=== PATIENT | male | born 1925 | race Caucasian/White ===

== ENCOUNTER 2017-02-06 17:18 | Observation (INO) | payer MEDICARE, OTHER ==
[~2017-02-06 17:18] MED LIST: [UNRECOGNIZED DRUG - OTHER] PO SCH
--- NOTE | 2017-02-06 17:32 | EDM.PDOC ---
ED HPI GENERAL MEDICAL PROBLEM - General Chief Complaint: General Stated Complaint: fell hit head, sore right knee Time Seen by Provider: 02/06/17 17:20 Source of Information: Reports: Patient History Limitations: Reports: No Limitations - History of Present Illness INITIAL COMMENTS - FREE TEXT/NARRATIVE: Patient doing some wood working in his shop. He walked backwards to sit down and there was not a chair to sit on. He hit the back of his head, and twisted his right knee. Denies any LOC, is on coumadin. Having a difficult time standing due to pain to right knee. He has no other complaints. Onset: Today, Sudden Location: Reports: Head, Lower Extremity, Right Severity: Moderate Right Knee Pain Score (Numeric/FACES): 10 - Related Data Allergies Allergy/AdvReac Type Severity Reaction Status Date / Time NSAIDS (Non-Steroidal Allergy Mild Other Verified 02/06/17 17:47 Anti-Inflamma terazosin [Terazosin] Allergy Edema Verified 02/06/17 17:47 Home Meds: Home Meds Aspirin [Halfprin] 81 mg PO DAILY 05/19/13 [History] Cholecalciferol (Vitamin D3) [Vitamin D3] 1,000 units PO DAILY 05/19/13 [History ] Docusate Sodium [Colace] 100 mg PO BEDTIME 05/19/13 [History] Finasteride [Proscar] 5 mg PO DAILY 05/19/13 [History] Levothyroxine Sodium [Synthroid] 112 mcg PO ACBRK 05/19/13 [History] Acetaminophen [Tylenol Extra Strength] 1,000 mg PO Q4HR PRN 10/18/13 [History] Amiodarone [Cordarone] 200 mg PO DAILY 10/18/13 [History] Polyethylene Glycol 3350 [MiraLAX] 17 gm PO DAILY PRN 07/03/14 [History] Folic Acid 1 mg PO DAILY 10/06/14 [History] Tamsulosin [Flomax] 0.4 mg PO BEDTIME 10/06/14 [History] Cyanocobalamin (Vitamin B-12) [Cyanocobalamin Injection] 1,000 mcg IM Q30D 01/11 [History] Hydrocodone/Acetaminophen [[place] 10-325] 1 tab PO BEDTIME 01/14/15 [History] Phytonadione [Vitamin K] 100 mcg PO DAILY 01/14/15 [History] Ferrous Sulfate 325 mg PO DAILY 10/04/15 [History] Insulin Aspart [NovoLOG] 3 unit SUBCUT ACBREAKFAST PRN 10/04/15 [History] Insulin Aspart [NovoLOG] 7 unit SQ ,18 10/04/15 [History] Magnesium Oxide 250 mg PO BID 10/04/15 [History] Potassium Chloride 40 meq PO DAILY 10/04/15 [History] Simvastatin [Zocor] 0.5 tab PO BEDTIME 10/04/15 [History] Warfarin [Coumadin] 5 mg PO MOWEFR 10/20/15 [History] Insulin Aspart [NovoLOG] 3 unit SUBCUT WITHBREAKFAST #1 pen 10/22/15 [Rx] Insulin Detemir [Levemir] 6 unit SUBCUT DAILY #1 pen 10/22/15 [Rx] Metoprolol Succinate [Toprol XL] 50 mg PO DAILY #0 10/22/15 [Rx] Sennosides [Senna] 8.6 mg PO DAILY #30 tablet 10/22/15 [Rx] Warfarin [Coumadin] 2.5 mg PO SuTuThSa@1999 #1 tablet 10/22/15 [Rx] Past Medical History HEENT History: Reports: Hard of Hearing Cardiovascular History: Reports: Arrhythmia, Heart Failure, Heart Valve Replacement, High Cholesterol, Hypertension, Pacemaker Genitourinary History: Reports: Prostate Disorder Musculoskeletal History: Reports: Back Pain, Chronic, Osteoporosis Psychiatric History: Reports: Anxiety Endocrine/Metabolic History: Reports: Diabetes, Type II, Hypothyroidism - Past Surgical History Other Musculoskeletal Surgeries/Procedures:: bilateral hip Social & Family History - Tobacco Use Smoking Status *Q: Never Smoker Second Hand Smoke Exposure: No - Alcohol Use Days Per Week of Alcohol Use: 0 - Recreational Drug Use Recreational Drug Use: No - Living Situation & Occupation Living situation: Reports: , with Spouse ED ROS GENERAL - Review of Systems Review Of Systems: ROS reveals no pertinent complaints other than HPI. ED EXAM, GENERAL - Physical Exam Exam: See Below Exam Limited By: No Limitations General Appearance: Alert, WD/WN, No Apparent Distress Eye Exam: Bilateral Eye: EOMI, PERRL Ears: Normal TMs Nose: Normal Inspection Throat/Mouth: Normal Inspection, Normal Oropharynx Head: Normocephalic, Other (laceration to occiput region of the head) Neck: Normal Inspection, Supple, Non-Tender, Full Range of Motion Respiratory/Chest: No Respiratory Distress, Lungs Clear, Normal Breath Sounds, No Accessory Muscle Use, Chest Non-Tender Cardiovascular: Normal Peripheral Pulses, Regular Rate, Rhythm, No Edema, Other (click from mechanical valve, left subclavian pacemaker) Peripheral Pulses: 2+: Posterior Tibial (L), Posterior Tibial (R), Dorsalis Pedis (L), Dorsalis Pedis (R) GI/Abdominal: Normal Bowel Sounds, Soft, Non-Tender Back Exam: Normal Inspection Extremities: Normal Capillary Refill, Joint Swelling (right knee), Leg Pain ( right knee), Limited Range of Motion (right knee). No: Normal Inspection, Pedal Edema Neurological: Alert, Oriented, CN II-XII Intact, Normal Cognition, Abnormal Gait (due to pain) Psychiatric: Normal Affect, Normal Mood Skin Exam: Warm, Dry, Wound/Incision (skin tear to left elbow, hematoma to right elbow, hematoma and lac to occiput). No: Intact Lymphatic: No Adenopathy Course - Vital Signs Last Recorded V/S: Last Vital Signs Temp 37.2 C 02/06/17 17:18 Pulse 96 02/06/17 17:18 Resp 16 02/06/17 17:18 BP 130/90 02/06/17 17:18 Pulse Ox - Orders/Labs/Meds Orders: Active Orders 24 hr Category Date Time Status Head wo Cont [CT] Stat Exams 02/06/17 17:28 Taken Knee 3V Rt [CR] Stat Exams 02/06/17 17:28 Taken Sodium Chloride 0.9% [Saline Flush] Med 02/06/17 18:46 Ordered 10 ml FLUSH ASDIRECTED PRN Saline Lock Insert [OM.PC] Routine Oth 02/06/17 18:46 Ordered Medication Orders Sodium Chloride (Saline Flush) 10 ml FLUSH ASDIRECTED PRN PRN Reason: Keep Vein Open Labs: Laboratory Tests 02/06/17 Range/Units 18:06 PT 18.6 H D (9.8-11.8) SEC INR 1.8 L (2.0-3.5) Meds: Medications Generic Name Dose Route Start Last Admin Trade Name Freq PRN Reason Stop Dose Admin Sodium Chloride 10 ml 02/06/17 18:46 Saline Flush FLUSH ASDIRECTED PRN Keep Vein Open Discontinued Medications Generic Name Dose Route Start Last Admin Trade Name Freq PRN Reason Stop Dose Admin Morphine Sulfate 2 mg 02/06/17 18:46 Morphine IVPUSH 02/06/17 18:47 ONETIME ONE - Radiology Interpretation Free Text/Narrative:: Head CT reviewed. No intracranial acute process. No hematoma on exam. X-ray of right knee shows acute non displaced fractures of the lateral tibial plateau and the proximal fibula Phone call made to [facility] automation engineering manager Dr. Riley to review plan of care. Departure - Departure Time of Disposition: 19:25 Disposition: Refer to Observation Condition: Good Clinical Impression: Tibial plateau fracture, right, Fracture of proximal end of right fibula - Discharge Information Forms: ED Department Discharge ED Communication - Discussed Case With (1) Discussed Case With (1): Other (Discussed case with Dr. Riley; automation engineering manager orthopedic for [facility] in [place]. Plan of care developed. No surgery at this time. Knee immobilizer and non weight bear. Follow up with x-ray in 1 week in [place].) - My Orders Last 24 Hours: My Active Orders 02/06/17 17:28 Head wo Cont [CT] Stat Knee 3V Rt [CR] Stat 02/06/17 18:46 Sodium Chloride 0.9% [Saline Flush] 10 ml FLUSH ASDIRECTED PRN Saline Lock Insert [OM.PC] Routine - Assessment/Plan Last 24 Hours: My Active Orders 02/06/17 17:28 Head wo Cont [CT] Stat Knee 3V Rt [CR] Stat 02/06/17 18:46 Sodium Chloride 0.9% [Saline Flush] 10 ml FLUSH ASDIRECTED PRN Saline Lock Insert [OM.PC] Routine
[2017-02-06] MEDS ORDERED: Morphine 2 MG/ML Syringe IVPUSH ONE (18:46)
[2017-02-06] MEDS ORDERED: Acetaminophen 325 MG Tab PO PRN (20:17)
[2017-02-06] MEDS ORDERED: Polyethylene Glycol 3350 Powder 17 GM Packet PO PRN ×2 (20:17→21:45)
[2017-02-06] MEDS ORDERED: Ondansetron 4 MG/2 ML SDV IV PRN (20:17)
[2017-02-06] MEDS ORDERED: Warfarin 2 MG Tab PO ONE (21:00)
[2017-02-06] MEDS ORDERED: Warfarin 2.5 MG Tab PO SCH (21:45)
[2017-02-06] MEDS: Morphine 2 MG/ML Syringe IVPUSH PRN (21:59)
[2017-02-06] MEDS: Sodium Chloride 0.9% 10 ML Syringe FLUSH PRN (22:06)
[2017-02-06] MEDS: Acetaminophen/HYDROcodone 325-10 MG Tab PO PRN (23:49)
[2017-02-07] MEDS: Morphine 2 MG/ML Syringe IVPUSH PRN ×3 (01:38→19:37)
[2017-02-07] MEDS: Acetaminophen/HYDROcodone 325-10 MG Tab PO PRN (06:05)
[2017-02-07] MEDS: Levothyroxine 125 MCG Tab PO SCH (06:05)
[2017-02-07] MEDS: Furosemide 20 MG Tab PO SCH ×2 (06:05→13:41)
[2017-02-07] MEDS ORDERED: Warfarin 5 MG Tab PO SCH ×2 (08:00→20:00)
[2017-02-07] MEDS: Aspirin 81 MG Tab.EC PO SCH (08:59)
[2017-02-07] MEDS: Potassium Chloride 10 MEQ Tab.ER PO SCH (08:59)
[2017-02-07] MEDS: Sennosides 8.6 MG Tab PO SCH (08:59)
[2017-02-07] MEDS: Cholecalciferol (Vitamin D3) 1,000 Unit Tab PO SCH (09:00)
[2017-02-07] MEDS: Allopurinol 100 MG Tab PO SCH (09:00)
[2017-02-07] MEDS: Phytonadione 100 MCG Tab PO SCH (09:01)
[2017-02-07] MEDS: Finasteride 5 MG Tab PO SCH (09:01)
[2017-02-07] MEDS: Folic Acid 1 MG Tab PO SCH (09:02)
[2017-02-07] MEDS: Metoprolol Succinate 25 MG Tab.ER PO SCH (09:02)
[2017-02-07] MEDS: Insulin Aspart 100 Units/ML 3 ML Pen SUBCUT SCH (09:03)
--- NOTE | 2017-02-07 11:34 | PCM.PN ---
- General Info Date of Service: 02/07/17 Admission Dx/Problem (Free Text): tibial plateau fracture, proximal fibula fracture right leg Functional Status: Reports: Pain Controlled, Tolerating Diet, Other (await PT evaluation to indicate safest method of ambulation) - Review of Systems General: Reports: No Symptoms HEENT: Reports: No Symptoms Pulmonary: Reports: No Symptoms Cardiovascular: Reports: No Symptoms Gastrointestinal: Reports: No Symptoms Genitourinary: Reports: No Symptoms Musculoskeletal: Reports: Leg Pain (right knee) Skin: Reports: Other (skin tear left elbow) Neurological: Reports: No Symptoms Psychiatric: Reports: No Symptoms - Patient Data Vitals - Most Recent: Last Vital Signs Temp 36.8 C 02/07/17 10:00 Pulse 73 02/07/17 10:00 Resp 20 02/07/17 10:00 BP 122/75 02/07/17 10:00 Pulse Ox 95 02/07/17 10:00 Weight - Most Recent: 82.554 kg I&O - Last 24 Hours: Intake & Output 02/06/17 02/07/17 02/07/17 22:59 06:59 14:59 Intake Total 600 420 240 Output Total 600 125 Balance 600 -180 115 Lab Results Last 24 Hours: Laboratory Results - last 24 hr 02/06/17 02/07/17 Range/Units 20:09 06:00 POC Glucose 111 H 188 H (74-106) mg/dL Med Orders - Current: Current Medications Acetaminophen (Tylenol) 650 mg PO Q4H PRN PRN Reason: Pain (Mild 1-3)/fever Hydrocodone Bitart/Acetaminophen ([place] 325-10 Mg) 1 - 2 tab PO Q6H PRN PRN Reason: PAIN Last Admin: 02/07/17 06:05 Dose: 1 tab Allopurinol (Zyloprim) 100 mg PO DAILY [facility] Last Admin: 02/07/17 09:00 Dose: 100 mg Aspirin (Halfprin) 81 mg PO DAILY [facility] Last Admin: 02/07/17 08:59 Dose: 81 mg Calcitriol (Rocaltrol) 0.25 mcg PO ASDIRECTED [facility] Cholecalciferol (Vitamin D3) 1,000 units PO DAILY [facility] Last Admin: 02/07/17 09:00 Dose: 1,000 units Cyanocobalamin (Vitamin B12) 1,000 mcg IM Q30D [facility] Docusate Sodium (Colace) 100 mg PO BEDTIME [facility] Ferrous Sulfate (Ferrous Sulfate) 325 mg PO ASDIRECTED [facility] Finasteride (Proscar) 5 mg PO DAILY [facility] Last Admin: 02/07/17 09:01 Dose: 5 mg Folic Acid (Folic Acid) 1 mg PO DAILY [facility] Last Admin: 02/07/17 09:02 Dose: 1 mg Furosemide (Lasix) 20 mg PO BID@0600,1400 [facility] Last Admin: 02/07/17 06:05 Dose: 20 mg Insulin Aspart (Novolog) 3 unit SUBCUT WITHBREAKFAST [facility] Last Admin: 02/07/17 09:03 Dose: 3 unit Insulin Aspart (Novolog) 5 unit SUBCUT WITHDINNER [facility] Insulin Aspart (Novolog) 7 unit SUBCUT WITHLUNCH [facility] Levothyroxine Sodium (Levothyroxine) 125 mcg PO ACBRK [facility] Last Admin: 02/07/17 06:05 Dose: 125 mcg Metoprolol Succinate (Toprol Xl) 25 mg PO DAILY [facility] Last Admin: 02/07/17 09:02 Dose: 25 mg Morphine Sulfate (Morphine) 2 mg IVPUSH Q2H PRN PRN Reason: Pain (severe 7-10) Last Admin: 02/07/17 01:38 Dose: 2 mg Warfarin Dosing Per (Pharmacy) 0 each PO DAILY [facility] Ondansetron HCl (Zofran) 4 mg IV Q6H PRN PRN Reason: Nausea/Vomiting Phytonadione (Vitamin K) 100 mcg PO DAILY [facility] Last Admin: 02/07/17 09:01 Dose: 100 mcg Polyethylene Glycol (Miralax) 17 gm PO DAILY PRN PRN Reason: Constipation Potassium Chloride (Klor-Con 10) 10 meq PO WITHBREAKFAST [facility] Last Admin: 02/07/17 08:59 Dose: 10 meq Senna (Senna) 8.6 mg PO DAILY [facility] Last Admin: 02/07/17 08:59 Dose: 8.6 mg Senna/Docusate Sodium (Senna Plus) 1 tab PO BID PRN PRN Reason: Constipation Simvastatin (Zocor) 20 mg PO BEDTIME [facility] Sodium Chloride (Saline Flush) 10 ml FLUSH ASDIRECTED PRN PRN Reason: Keep Vein Open Last Admin: 02/06/17 22:06 Dose: 10 ml Tamsulosin HCl (Flomax) 0.4 mg PO BEDTIME [facility] Warfarin Sodium (Coumadin) 5 mg PO BEDTIME [facility] Stop: 02/07/17 20:01 Discontinued Medications Morphine Sulfate (Morphine) 2 mg IVPUSH ONETIME ONE Stop: 02/06/17 18:47 Last Admin: 02/06/17 19:02 Dose: 2 mg Polyethylene Glycol (Miralax) 17 gm PO DAILY PRN PRN Reason: Constipation Warfarin Sodium (Coumadin) 4 mg PO ONETIME ONE Stop: 02/06/17 21:01 Last Admin: 02/06/17 21:13 Dose: 4 mg Warfarin Sodium (Coumadin) 2.5 mg PO ASDIRECTED [facility] Warfarin Sodium (Coumadin) 5 mg PO DAILY [facility] - Exam General: Alert, Oriented, Cooperative, No Acute Distress HEENT: Pupils Equal, Pupils Reactive, EOMI Neck: Supple Lungs: Clear to Auscultation, Normal Respiratory Effort Cardiovascular: Regular Rate, Other (mechanical valve click) GI/Abdominal Exam: Normal Bowel Sounds, Soft, Non-Tender Back Exam: Normal Inspection Extremities: Normal Inspection, No Pedal Edema, Normal Capillary Refill, Joint Swelling, Limited Range of Motion (right knee) Skin: Warm, Dry, Intact Wound/Incisions: Healing Well (posterior occiput abrasion no longer bleeding) Neurological: No New Focal Deficit Psy/Mental Status: Alert, Normal Affect, Normal Mood - Problem List & Annotations (1) Fracture of proximal end of right fibula SNOMED Code(s): 48488824 Code(s): S82.831A - OTH FRACTURE OF UPPER AND LOWER END OF RIGHT FIBULA, INIT Status: Acute Priority: Low Current Visit: Yes Qualifiers: Encounter type: subsequent encounter Fracture type: closed Fracture morphology: unspecified fracture morphology Fracture healing: with routine healing Qualified Code(s): S82.831D - Other fracture of upper and lower end of right fibula, subsequent encounter for closed fracture with routine healing (2) Tibial plateau fracture, right SNOMED Code(s): 282073385 Code(s): S82.141A - DISPLACED BICONDYLAR FRACTURE OF RIGHT TIBIA, INIT Status: Acute Priority: Low Current Visit: Yes Qualifiers: Encounter type: subsequent encounter Fracture type: closed Fracture healing: with routine healing Qualified Code(s): S82.141D - Displaced bicondylar fracture of right tibia, subsequent encounter for closed fracture with routine healing - Problem List Review Problem List Initiated/Reviewed/Updated: Yes - My Orders Last 24 Hours: My Active Orders 02/06/17 20:17 Patient Status [ADT] Routine Oxygen Therapy [RC] PRN Up With Assistance [RC] ASDIRECTED Up to Chair [RC] ASDIRECTED VTE/DVT Education [RC] PER UNIT ROUTINE Vital Signs [RC] 06,10,14,18,22,02 OT Evaluation and Treatment [CONS] Routine PT Evaluation and Treatment [CONS] Routine Acetaminophen [Tylenol] 650 mg PO Q4H PRN Docusate Sodium/Sennosides [Senna Plus] 1 tab PO BID PRN Morphine 2 mg IVPUSH Q2H PRN Ondansetron [Zofran] 4 mg IV Q6H PRN Resuscitation Status Routine 02/06/17 21:45 Acetaminophen/HYDROcodone [[place] 325-10 MG] 1 - 2 tab PO Q6H PRN Calcitriol [Rocaltrol] 0.25 mcg PO ASDIRECTED Cyanocobalamin (Vitamin B12) [Vitamin B12] 1,000 mcg IM Q30D Ferrous Sulfate 325 mg PO ASDIRECTED Polyethylene Glycol 3350 [MiraLAX] 17 gm PO DAILY PRN 02/06/17 22:33 Blood Glucose Check, Bedside [RC] QIDACANDBED 02/06/17 Dinner Regular Diet [DIET] 02/07/17 06:00 Furosemide [Lasix] 20 mg PO BID@0600,1400 02/07/17 07:00 Levothyroxine 125 mcg PO ACBRK 02/07/17 08:00 Allopurinol [Zyloprim] 100 mg PO DAILY Aspirin [Halfprin] 81 mg PO DAILY Cholecalciferol (Vitamin D3) [Vitamin D3] 1,000 units PO DAILY Finasteride [Proscar] 5 mg PO DAILY Folic Acid 1 mg PO DAILY Insulin Aspart [NovoLOG] 3 unit SUBCUT WITHBREAKFAST Metoprolol Succinate [Toprol XL] 25 mg PO DAILY Phytonadione [Vitamin K] 100 mcg PO DAILY Potassium Chloride [Klor-Con 10] 10 meq PO WITHBREAKFAST Sennosides [Senna] 8.6 mg PO DAILY 02/07/17 12:00 Insulin Aspart [NovoLOG] 7 unit SUBCUT WITHLUNCH 02/07/17 18:00 Insulin Aspart [NovoLOG] 5 unit SUBCUT WITHDINNER 02/07/17 20:00 Docusate Sodium [Colace] 100 mg PO BEDTIME Simvastatin [Zocor] 20 mg PO BEDTIME Tamsulosin [Flomax] 0.4 mg PO BEDTIME Warfarin [Coumadin] 5 mg PO BEDTIME 02/07/17 Breakfast ADA Diabetic [[place] [employer] Diet] [DIET] - Assessment Assessment:: closed, non displaced fractures of the right tibial plateau and proximal fibula - Plan Plan:: Patient to be non weight bearing on right leg and have in knee immobilizer. He needs PT/OT evaluation as he suffers from pain to his right shoulder. This makes the use of a walker very difficult for him if not impossible. His is unable to assist. Will consult social work to determine if he needs to be changed to swing bed, or find him a location at a long-term facility until he is able to come off non weight bear restrictions. Pain control. Patient already on coumadin for mechanical valve, no additional DVT prophylaxis needed.
[2017-02-07] MEDS ORDERED: Insulin Aspart 100 Units/ML 3 ML Pen SUBCUT SCH ×2 (12:00→18:00)
[2017-02-07] MEDS: Sodium Chloride 0.9% 10 ML Syringe FLUSH PRN ×2 (12:33→19:42)
[2017-02-07] MEDS ORDERED: Tamsulosin 0.4 MG Cap.ER PO SCH (20:00)
[2017-02-07] MEDS ORDERED: Simvastatin 20 MG Tab PO SCH (20:00)
[2017-02-07] MEDS ORDERED: Docusate Sodium 100 MG Cap PO SCH (20:00)
[2017-02-08] MEDS: Sodium Chloride 0.9% 10 ML Syringe FLUSH PRN ×2 (03:13→07:47)
[2017-02-08] MEDS: Morphine 2 MG/ML Syringe IVPUSH PRN (03:13)
[2017-02-08] MEDS: Levothyroxine 125 MCG Tab PO SCH (06:09)
[2017-02-08] MEDS: Furosemide 20 MG Tab PO SCH (06:10)
[2017-02-08] MEDS: Aspirin 81 MG Tab.EC PO SCH (07:40)
[2017-02-08] MEDS: Allopurinol 100 MG Tab PO SCH (07:40)
[2017-02-08] MEDS: Sennosides 8.6 MG Tab PO SCH (07:40)
[2017-02-08] MEDS: Cholecalciferol (Vitamin D3) 1,000 Unit Tab PO SCH (07:41)
[2017-02-08] MEDS: Metoprolol Succinate 25 MG Tab.ER PO SCH (07:41)
[2017-02-08] MEDS: Finasteride 5 MG Tab PO SCH (07:42)
[2017-02-08] MEDS: Potassium Chloride 10 MEQ Tab.ER PO SCH (07:42)
[2017-02-08] MEDS: Phytonadione 100 MCG Tab PO SCH (07:42)
[2017-02-08] MEDS: Insulin Aspart 100 Units/ML 3 ML Pen SUBCUT SCH (07:42)
[2017-02-08] MEDS: Folic Acid 1 MG Tab PO SCH (07:42)
[2017-02-08] MEDS: Acetaminophen/HYDROcodone 325-10 MG Tab PO PRN (07:44)
[2017-02-08] MEDS ORDERED: Calcitriol 0.25 MCG Cap PO SCH (08:00)
[2017-02-08] MEDS ORDERED: Ferrous Sulfate 325 MG Tab PO SCH (08:00)
--- NOTE | 2017-02-08 10:05 | PCM.DCSUM1 ---
Discharge Summary - Hospital Course HPI Initial Comments: Patient had presented to the emergency room at [facility] on February 06, 2017 after he sustained a head injury and a right knee injury. Apparently the patient was working in his carotids at the time of the incident. The patient states that he was attempting to sit into a chair, and realized there was no chair available and he fell hitting his head and right knee on the ground. The patient denied any LOC at the time of the incident. The patient had denied any previous head trauma. No previous right knee problems. The patient never had any numbness tingling or paresthesia to any extremity. The admitting provider had talked to orthopedics out [facility] in [place], who recommended that the patient was a non-surgical candidate. The patient was therefore admitted to observation at [facility] for further evaluation, physical and occupational therapy, and case management. - Discharge Data Discharge Date: 02/08/17 Discharge Disposition: DC/Tfer to [facility] Condition: Fair - Discharge Diagnosis/Problem(s) (1) Tibial plateau fracture, right SNOMED Code(s): 285705388 ICD Code: S82.141A - DISPLACED BICONDYLAR FRACTURE OF RIGHT TIBIA, INIT Status: Acute Priority: Low Current Visit: Yes Onset Date: ~02/06/17 Qualifiers: Encounter type: subsequent encounter Fracture type: closed Fracture healing: with routine healing Qualified Code(s): S82.141D - Displaced bicondylar fracture of right tibia, subsequent encounter for closed fracture with routine healing (2) Fracture of proximal end of right fibula SNOMED Code(s): 37367516 ICD Code: S82.831A - OTH FRACTURE OF UPPER AND LOWER END OF RIGHT FIBULA, INIT Status: Acute Priority: Low Current Visit: Yes Onset Date: ~ Qualifiers: Encounter type: subsequent encounter Fracture type: closed Fracture morphology: unspecified fracture morphology Fracture healing: with routine healing Qualified Code(s): S82.831D - Other fracture of upper and lower end of right fibula, subsequent encounter for closed fracture with routine healing - Patient Summary/Data Operative Procedure(s) Performed: None Consults: Consultations 02/06/17 20:17 OT Evaluation and Treatment [CONS] Routine PT Evaluation and Treatment [CONS] Routine 02/07/17 11:35 Consult to [facility] [CONS] Routine Labs Pending at D/C: None Hospital Course: Overall the patient did well during his short observation hospital stay. Physical therapy and recommended long-term rehabilitation for the patient. The patient remained afebrile and hemodynamically stable. The patient did not have any problems with urination or bowel movements. Patient's blood work remained stable. The patient wore a knee immobilizer continuously. - Patient Instructions Diet: Diabetic Diet Activity: Non Weight Bearing (Right Leg) Driving: Do Not Drive Showering/Bathing: May Shower Notify Provider of: Fever, Increased Pain, Swelling and Redness - Discharge Plan Home Medications: Home Meds Aspirin [Halfprin] 81 mg PO DAILY 05/19/13 [History] Cholecalciferol (Vitamin D3) [Vitamin D3] 1,000 units PO DAILY 05/19/13 [History ] Docusate Sodium [Colace] 100 mg PO BEDTIME 05/19/13 [History] Finasteride [Proscar] 5 mg PO DAILY 05/19/13 [History] Levothyroxine Sodium [Synthroid] 125 mcg PO ACBRK 05/19/13 [History] Acetaminophen [Tylenol Extra Strength] 1,000 mg PO Q4HR PRN 10/18/13 [History] Polyethylene Glycol 3350 [MiraLAX] 17 gm PO DAILY PRN 07/03/14 [History] Folic Acid 1 mg PO DAILY 10/06/14 [History] Tamsulosin [Flomax] 0.4 mg PO BEDTIME 10/06/14 [History] Cyanocobalamin (Vitamin B-12) [Cyanocobalamin Injection] 1,000 mcg IM Q30D 01/11 [History] Phytonadione [Vitamin K] 100 mcg PO DAILY 01/14/15 [History] Ferrous Sulfate 325 mg PO ASDIRECTED 10/04/15 [History] Insulin Aspart [NovoLOG] 5 unit SQ WITHDINNER 10/04/15 [History] Insulin Aspart [NovoLOG] 7 unit SQ WITHLUNCH 10/04/15 [History] Potassium Chloride 10 meq PO DAILY 10/04/15 [History] Simvastatin [Zocor] 0.5 tab PO BEDTIME 10/04/15 [History] Warfarin [Coumadin] 5 mg PO DAILY 10/20/15 [History] Insulin Aspart [NovoLOG] 3 unit SUBCUT WITHBREAKFAST #1 pen 10/22/15 [Rx] Sennosides [Senna] 8.6 mg PO DAILY #30 tablet 10/22/15 [Rx] Allopurinol [Zyloprim] 100 mg PO DAILY 02/06/17 [History] Calcitriol [Rocaltrol] 0.25 mcg PO ASDIRECTED 02/06/17 [History] Furosemide [Lasix] 20 mg PO BID 02/06/17 [History] Metoprolol Succinate [Toprol XL] 25 mg PO DAILY 02/06/17 [History] Warfarin [Coumadin] 2.5 mg PO ASDIRECTED 02/06/17 [History] Forms: Interfacility Transfer EMTALA Referrals: Ceci Boyle MD [Physician] - - Discharge Summary/Plan Comment DC Time >30 min.: Yes Discharge Summary/Plan Comment: 89-year-old male patient with a past medical history of heart failure, hypertension, diabetes type 2, hypothyroidism, was admitted to the observation unit at [facility] for a right tibial plateau fracture and a right fibular fracture. The patient will be discharged today to the [facility] for further rehabilitation with physical and occupational therapy. The patient will be transferred via local taxi. Please see admitting orders for [facility] for further information. The patient was discharged from [facility] in hemodynamic stable condition. All appropriate paperwork was filled out in their entirety. - General Info Date of Service: 02/08/17 Admission Dx/Problem (Free Text: tibial plateau fracture, proximal fibula fracture right leg Functional Status: Reports: Pain Controlled, Tolerating Diet - Review of Systems General: Denies: Fever, Chills Pulmonary: Denies: Shortness of Breath, Sputum Cardiovascular: Denies: Chest Pain, Palpitations Gastrointestinal: Denies: Abdominal Pain, Nausea, Vomiting Musculoskeletal: Reports: Leg Pain, Joint Pain Skin: Reports: Other Neurological: Reports: No Symptoms. Denies: Numbness, Paresthesia, Tingling - Patient Data Vitals - Most Recent: Last Vital Signs Temp 37.1 C 02/08/17 05:09 Pulse 84 02/08/17 07:41 Resp 20 02/08/17 05:09 BP 140/80 02/08/17 07:41 Pulse Ox 99 02/08/17 05:09 Weight - Most Recent: 82.554 kg I&O - Last 24 hours: Intake & Output 02/07/17 02/08/17 02/08/17 22:59 06:59 14:59 Intake Total 400 640 360 Output Total 750 900 Balance -350 -260 360 Lab Results - Last 24 hrs: Laboratory Results - last 24 hr 02/07/17 02/07/17 02/07/17 Range/Units 11:10 16:33 19:36 POC Glucose 201 H 182 H 207 H (74-106) mg/dL 02/08/17 Range/Units 06:09 POC Glucose 153 H (74-106) mg/dL Med Orders - Current: Current Medications Acetaminophen (Tylenol) 650 mg PO Q4H PRN PRN Reason: Pain (Mild 1-3)/fever Hydrocodone Bitart/Acetaminophen ([place] 325-10 Mg) 1 - 2 tab PO Q6H PRN PRN Reason: PAIN Last Admin: 02/08/17 07:44 Dose: 2 tab Allopurinol (Zyloprim) 100 mg PO DAILY [facility] Last Admin: 02/08/17 07:40 Dose: 100 mg Aspirin (Halfprin) 81 mg PO DAILY [facility] Last Admin: 02/08/17 07:40 Dose: 81 mg Calcitriol (Rocaltrol) 0.25 mcg PO MoWeFr@0800 [facility] Last Admin: 02/08/17 07:42 Dose: 0.25 mcg Cholecalciferol (Vitamin D3) 1,000 units PO DAILY [facility] Last Admin: 02/08/17 07:41 Dose: 1,000 units Cyanocobalamin (Vitamin B12) 1,000 mcg IM Q30D [facility] Docusate Sodium (Colace) 100 mg PO BEDTIME [facility] Last Admin: 02/07/17 19:37 Dose: 100 mg Ferrous Sulfate (Ferrous Sulfate) 325 mg PO MoWeFr@0800 [facility] Last Admin: 02/08/17 07:41 Dose: 325 mg Finasteride (Proscar) 5 mg PO DAILY [facility] Last Admin: 02/08/17 07:42 Dose: 5 mg Folic Acid (Folic Acid) 1 mg PO DAILY [facility] Last Admin: 02/08/17 07:42 Dose: 1 mg Furosemide (Lasix) 20 mg PO BID@0600,1400 [facility] Last Admin: 02/08/17 06:10 Dose: 20 mg Insulin Aspart (Novolog) 3 unit SUBCUT WITHBREAKFAST [facility] Last Admin: 02/08/17 07:42 Dose: 3 unit Insulin Aspart (Novolog) 5 unit SUBCUT WITHDINNER [facility] Last Admin: 02/07/17 18:22 Dose: 5 units Insulin Aspart (Novolog) 7 unit SUBCUT WITHLUNCH [facility] Last Admin: 02/07/17 12:30 Dose: 7 units Levothyroxine Sodium (Levothyroxine) 125 mcg PO ACBRK [facility] Last Admin: 02/08/17 06:09 Dose: 125 mcg Metoprolol Succinate (Toprol Xl) 25 mg PO DAILY [facility] Last Admin: 02/08/17 07:41 Dose: 25 mg Morphine Sulfate (Morphine) 2 mg IVPUSH Q2H PRN PRN Reason: Pain (severe 7-10) Last Admin: 02/08/17 03:13 Dose: 2 mg Warfarin Dosing Per (Pharmacy) 0 each PO DAILY [facility] Ondansetron HCl (Zofran) 4 mg IV Q6H PRN PRN Reason: Nausea/Vomiting Phytonadione (Vitamin K) 100 mcg PO DAILY [facility] Last Admin: 02/08/17 07:42 Dose: 100 mcg Polyethylene Glycol (Miralax) 17 gm PO DAILY PRN PRN Reason: Constipation Potassium Chloride (Klor-Con 10) 10 meq PO WITHBREAKFAST [facility] Last Admin: 02/08/17 07:42 Dose: 10 meq Senna (Senna) 8.6 mg PO DAILY [facility] Last Admin: 02/08/17 07:40 Dose: 8.6 mg Senna/Docusate Sodium (Senna Plus) 1 tab PO BID PRN PRN Reason: Constipation Simvastatin (Zocor) 20 mg PO BEDTIME [facility] Last Admin: 02/07/17 19:37 Dose: 20 mg Sodium Chloride (Saline Flush) 10 ml FLUSH ASDIRECTED PRN PRN Reason: Keep Vein Open Last Admin: 02/08/17 07:47 Dose: 10 ml Tamsulosin HCl (Flomax) 0.4 mg PO BEDTIME [facility] Last Admin: 02/07/17 19:37 Dose: 0.4 mg Discontinued Medications Morphine Sulfate (Morphine) 2 mg IVPUSH ONETIME ONE Stop: 02/06/17 18:47 Last Admin: 02/06/17 19:02 Dose: 2 mg Polyethylene Glycol (Miralax) 17 gm PO DAILY PRN PRN Reason: Constipation Warfarin Sodium (Coumadin) 4 mg PO ONETIME ONE Stop: 02/06/17 21:01 Last Admin: 02/06/17 21:13 Dose: 4 mg Warfarin Sodium (Coumadin) 2.5 mg PO ASDIRECTED [facility] Warfarin Sodium (Coumadin) 5 mg PO DAILY [facility] Warfarin Sodium (Coumadin) 5 mg PO BEDTIME [facility] Stop: 02/07/17 20:01 Last Admin: 02/07/17 19:37 Dose: 5 mg Warfarin Sodium (Coumadin) 4 mg PO ONETIME ONE Stop: 02/08/17 20:01 - Exam Quality Assessment: Reports: Skin Breakdown General: Reports: Alert, Cooperative, No Acute Distress Lungs: Reports: Normal Respiratory Effort, Decreased Breath Sounds Cardiovascular: Reports: Regular Rate, No Murmurs, Irregular Rhythm GI/Abdominal Exam: Normal Bowel Sounds, Soft, Non-Tender Extremities: Normal Inspection, Limited Range of Motion (Right knee; Immobilizer in place) Skin: Reports: Warm, Dry, Other (multiple area of bruising from Coumadin use and recent fall) Neurological: Reports: No New Focal Deficit *Q Meaningful Use (DIS) - VTE *Q VTE Criteria *Q: VTE Mechanical Contraindications *Q: At Risk for Falls - Stroke *Q Stroke Criteria *Q: - AMI *Q AMI Criteria *Q:
[2017-02-08 10:11] VITALS: BP 104/66
[2017-02-08] MEDS ORDERED: Warfarin 2 MG Tab PO ONE (20:00)
[2017-02-10] MEDS ORDERED: Cyanocobalamin (Vitamin B12) 1,000 MCG/ML SDV IM SCH (08:00)
== END 2017-02-08 10:40 ==
LOC: VM.ED 17:18 → VM.MS 19:19
PROVIDERS: ADMIT Nurse Practitioner Family; ATTEND Nurse Practitioner Family
DX: S82.141A Displaced bicondylar fracture of right tibia, initial encounter for closed fracture (principal); S82.831A Other fracture of upper and lower end of right fibula, initial encounter for closed fracture; I11.0 Hypertensive heart disease with heart failure; I50.9 Heart failure, unspecified; E11.9 Type 2 diabetes mellitus without complications; E03.9 Hypothyroidism, unspecified; W18.39XA Other fall on same level, initial encounter; Z79.4 Long term (current) use of insulin; Z79.01 Long term (current) use of anticoagulants; Z79.82 Long term (current) use of aspirin; Z79.899 Other long term (current) drug therapy
CPT/HCPCS: 36415; 70450; 73562; 82962; 85610; 96374; 96376; 97161; 97165; 99217; 99220; 99225; 99285; A9270; G0378; J1815; J2270; J7050

== ENCOUNTER 2017-02-11 04:53 | Emergency (ER) | payer MEDICARE, OTHER ==
[2017-02-11] MEDS ORDERED: HYDROmorphone 1 MG/ML Syringe IM ONE (05:14)
--- NOTE | 2017-02-11 05:22 | EDM.PDOC ---
ED HPI GENERAL MEDICAL PROBLEM - General Chief Complaint: Lower Extremity Injury/Pain Stated Complaint: Leg Pain Time Seen by Provider: 02/11/17 04:55 Source of Information: Reports: Patient, [facility] Records History Limitations: Reports: No Limitations - History of Present Illness INITIAL COMMENTS - FREE TEXT/NARRATIVE: Pt. was hospitalized last week with a distal tib'fib fracture (bimaleolar) and was discharged to the [facility]. Pt. was kept on tylenol only for the pain. Pt. states that he has not had any new trauma. Dr. Boyle was called regarding this pt. who wished that the pt. be tranferred to ER apperently for evaluation and treatment. - Related Data Allergies Allergy/AdvReac Type Severity Reaction Status Date / Time NSAIDS (Non-Steroidal Allergy Mild Other Verified 02/06/17 17:47 Anti-Inflamma terazosin [Terazosin] Allergy Edema Verified 02/06/17 17:47 Home Meds: Home Meds Aspirin [Halfprin] 81 mg PO DAILY 05/19/13 [History] Cholecalciferol (Vitamin D3) [Vitamin D3] 1,000 units PO DAILY 05/19/13 [History ] Docusate Sodium [Colace] 100 mg PO BEDTIME 05/19/13 [History] Finasteride [Proscar] 5 mg PO DAILY 05/19/13 [History] Levothyroxine Sodium [Synthroid] 125 mcg PO ACBRK 05/19/13 [History] Acetaminophen [Tylenol Extra Strength] 1,000 mg PO Q4HR PRN 10/18/13 [History] Polyethylene Glycol 3350 [MiraLAX] 17 gm PO DAILY PRN 07/03/14 [History] Folic Acid 1 mg PO DAILY 10/06/14 [History] Tamsulosin [Flomax] 0.4 mg PO BEDTIME 10/06/14 [History] Cyanocobalamin (Vitamin B-12) [Cyanocobalamin Injection] 1,000 mcg IM Q30D 01/11 [History] Phytonadione [Vitamin K] 100 mcg PO DAILY 01/14/15 [History] Ferrous Sulfate 325 mg PO ASDIRECTED 10/04/15 [History] Insulin Aspart [NovoLOG] 5 unit SQ WITHDINNER 10/04/15 [History] Insulin Aspart [NovoLOG] 7 unit SQ WITHLUNCH 10/04/15 [History] Potassium Chloride 10 meq PO DAILY 10/04/15 [History] Simvastatin [Zocor] 0.5 tab PO BEDTIME 10/04/15 [History] Warfarin [Coumadin] 5 mg PO DAILY 10/20/15 [History] Insulin Aspart [NovoLOG] 3 unit SUBCUT WITHBREAKFAST #1 pen 10/22/15 [Rx] Sennosides [Senna] 8.6 mg PO DAILY #30 tablet 10/22/15 [Rx] Allopurinol [Zyloprim] 100 mg PO DAILY 02/06/17 [History] Calcitriol [Rocaltrol] 0.25 mcg PO ASDIRECTED 02/06/17 [History] Furosemide [Lasix] 20 mg PO BID 02/06/17 [History] Metoprolol Succinate [Toprol XL] 25 mg PO DAILY 02/06/17 [History] Warfarin [Coumadin] 2.5 mg PO ASDIRECTED 02/06/17 [History] Past Medical History HEENT History: Reports: Hard of Hearing Cardiovascular History: Reports: Arrhythmia, Heart Failure, Heart Valve Replacement, High Cholesterol, Hypertension, Pacemaker Genitourinary History: Reports: Prostate Disorder Musculoskeletal History: Reports: Back Pain, Chronic, Osteoporosis Psychiatric History: Reports: Anxiety Endocrine/Metabolic History: Reports: Diabetes, Type II, Hypothyroidism - Past Surgical History Other Musculoskeletal Surgeries/Procedures:: bilateral hip Social & Family History - Tobacco Use Smoking Status *Q: Never Smoker Second Hand Smoke Exposure: No - Caffeine Use Caffeine Use: Reports: Coffee, Soda - Alcohol Use Days Per Week of Alcohol Use: 0 - Recreational Drug Use Recreational Drug Use: No - Living Situation & Occupation Living situation: Reports: , with Spouse Review of Systems - Review of Systems Review Of Systems: See Below Musculoskeletal: Reports: Leg Pain ED EXAM, GENERAL - Physical Exam Exam: See Below General Appearance: Alert, WD/WN, No Apparent Distress Extremities: Leg Pain, Limited Range of Motion Course - Orders/Labs/Meds Meds: Medications Discontinued Medications Generic Name Dose Route Start Last Admin Trade Name Freq PRN Reason Stop Dose Admin Hydrocodone Bitart/Acetaminophen 1 packet 02/11/17 05:25 Take Home: Acetaminophen/Hydrocodone 325-10mg PO 02/11/17 05:26 ONETIME ONE Hydromorphone HCl 1 mg 02/11/17 05:14 Dilaudid IM 02/11/17 05:15 ONETIME ONE Departure - Departure Time of Disposition: 05:32 Disposition: DC/Tfer to [facility] Clinical Impression: Bimalleolar fracture of ankle - Discharge Information Instructions: Tibial and Fibular Fracture, Adult Referrals: Zenaida Hamilton DO [Primary Care Provider] - Forms: ED Department Discharge Additional Instructions: [place] 10/325mg 1 tablet every 4 hours as needed for pain. Follow-up in clinic as needed.
[2017-02-11] MEDS ORDERED: Take Home: Acetaminophen/HYDROcodone 325-10 MG, 5 Tab Pack PO ONE (05:25)
[2017-02-11 07:07] VITALS: BP 107/68
== END 2017-02-11 06:14 ==
LOC: VM.ED 04:53
DX: S82.844D Nondisplaced bimalleolar fracture of right lower leg, subsequent encounter for closed fracture with routine healing (principal); I11.0 Hypertensive heart disease with heart failure; I50.9 Heart failure, unspecified; E78.00 Pure hypercholesterolemia, unspecified; E11.9 Type 2 diabetes mellitus without complications; E03.9 Hypothyroidism, unspecified; F41.9 Anxiety disorder, unspecified; M81.0 Age-related osteoporosis without current pathological fracture; Z98.890 Other specified postprocedural states; Z79.4 Long term (current) use of insulin; Z79.899 Other long term (current) drug therapy; Z79.01 Long term (current) use of anticoagulants; Z79.82 Long term (current) use of aspirin; Z88.8 Allergy status to other drugs, medicaments and biological substances; X58.XXXD Exposure to other specified factors, subsequent encounter
CPT/HCPCS: 96372; 99285; A9270; J1170; 99283-GF